=== PATIENT | female | born 1945 | race Caucasian/White ===

== ENCOUNTER → 2024-07-25 14:16 | Outpatient (CLI) | payer MEDICARE, OTHER, SELFPAY ==
--- NOTE | 2024-07-25 14:19 | DI.RAD.S_ITS ---
PROCEDURE: XR CHEST 2V INDICATIONS: hypoxia TECHNIQUE: 2 views of the chest were acquired. COMPARISON: [facility], CT, CT ANGIO CHEST PE, 06/13/2024, 23:15. FINDINGS: Surgical changes and devices: Stimulator device is noted overlying the mid thoracic spine. Lungs and pleura: Lungs are clear. No pleural effusions or pneumothorax. Mediastinum: Mediastinal contours are normal. Heart size is mildly prominent. Bones and chest wall: No suspicious bony abnormalities. Soft tissues appear unremarkable. IMPRESSION: No acute pulmonary process. Dictated by: Jaki Guold M.D. on 07/26/2024 at 11:10 Approved by: Jaki Gould M.D. on 07/26/2024 at 11:11
[2024-07-25 16:07] LABS: Allen Test for ABG Passed? Positive; Base Excess ABG 5.3 mmol/L (-2-3); Blood Gas Collection Site Right Radial; HCO3 ABG 31 mmol/L (23-27); Oxygen Saturation ABG 90 % (95-100); PCO2 ABG 46.4 mmHg (35-45); PO2 ABG 59 mmHg (80-100); TCO2 ABG 31 mmol/L (23-27); pH ABG 7.43 (7.35-7.45)
== END ==
PROVIDERS: PCP Family Medicine; Referring Provider Internal Medicine Critical Care Medicine; Visit Provider Internal Medicine Critical Care Medicine
DX: J45.909 Unspecified asthma, uncomplicated (principal); G47.34 Idiopathic sleep related nonobstructive alveolar hypoventilation; Z96.82 Presence of neurostimulator; Z68.31 Body mass index [BMI] 31.0-31.9, adult
CPT/HCPCS: 36600; 71046; 82805; 99214

== ENCOUNTER → 2024-08-02 08:20 | Outpatient (CLI) | payer MEDICARE, OTHER, SELFPAY | PROVIDERS: PCP Family Medicine; Referring Provider Internal Medicine Critical Care Medicine; Visit Provider Internal Medicine Critical Care Medicine | DX: J45.909 Unspecified asthma, uncomplicated (principal); G47.34 Idiopathic sleep related nonobstructive alveolar hypoventilation; Z87.891 Personal history of nicotine dependence; R94.2 Abnormal results of pulmonary function studies | CPT/HCPCS: 94060; 94726; 94729 ==

== ENCOUNTER → 2024-08-02 10:03 | Outpatient (CLI) | payer MEDICARE, OTHER, SELFPAY ==
--- NOTE | 2024-08-02 10:04 | DI.RAD.S_ITS ---
PROCEDURE: FL FLUOROSCOPY >1HR COMPARISON: None. INDICATIONS: ASTHMA, SNIFF TEST FINDINGS: There is symmetric movement of the hemidiaphragms with forced inspiration and expiration. IMPRESSION: Negative sniff test. Dictated by: Jaquan Jensen M.D. on 08/05/2024 at 6:34 Approved by: Jaquan Jensen M.D. on 08/05/2024 at 6:34
== END ==
LOC: RAD 10:04
PROVIDERS: PCP Family Medicine; Referring Provider Internal Medicine Critical Care Medicine; Visit Provider Internal Medicine Critical Care Medicine
DX: J45.909 Unspecified asthma, uncomplicated (principal); G47.34 Idiopathic sleep related nonobstructive alveolar hypoventilation
CPT/HCPCS: 76000; 94060; 94726; 94729

== ENCOUNTER → 2024-09-19 06:59 | Outpatient (CLI) | payer MEDICARE, OTHER, SELFPAY ==
--- NOTE | 2024-09-19 07:00 | DI.ECHO.S_ITS ---
[facility] : : [id number] : : [place] : : [id number] : : Phone: [phone] Echocardiogram Report + + :Name: KAREY WASHBURN Study Date: 09/19/2024 Height: 66 in : :[facility] ReadingLocation: Weight: 200 lb : : Gender: Female BSA: 2.0 m2 : :: 1945 Age: 79 yrs BP: 114/68 mmHg: :Reason For Study: DYSPNEA AND LOW O2 STATS : :Ordering Physician: KASSIDY, : :KENDRICK Performed By: Jeniffer Hull : :Referring: KENDRICK YI : + + Interpretation Summary Sinus bradycardia. Normal LV size and wall thickness. Normal wall motion and LV systolic function. Ejection fraction is 60-65%. Stage I diastolic dysfunction. Mild mitral annular calcification. Mild aortic stenosis with peak velocity of 2 m/s and mean gradient of 10 mmHg. Normal chamber sizes. No PFO based on bubble study. Estimated PA systolic pressure is 32 mmHg assuming right atrial pressure of 3 mmHg. Compared to prior study May 11, 2023, aortic stenosis is newly described. Procedure: A two-dimensional transthoracic echocardiogram with color flow and Doppler was performed. The study quality was technically adequate. A saline contrast injection was performed to assess for cardiac shunting. Comparison is made with the echocardiogram of 05/11/2023. The patient was in sinus bradycardia with heart rates between 50-58 bpm during the exam. Left Ventricle: The left ventricle is normal in size and wall thickness. The ejection fraction is estimated to be 60-65%. Right Ventricle: The right ventricle is borderline dilated. The right ventricular systolic function is normal. Atria: The left atrial size is normal. Right atrial size is normal. Injection of contrast documented no interatrial shunt. There is no Doppler evidence for an interatrial shunt. Mitral Valve: There is mild mitral annular calcification. The mitral valve leaflets appear mildly thickened, but open well. There is mild mitral regurgitation. Aortic Valve: There is mild aortic valve sclerosis. The aortic valve is mildly calcified. The aortic valve is trileaflet. There is mild aortic stenosis. The peak aortic velocity is 2.1 m/sec. The aortic valve mean gradient is 10 mmHg. No aortic regurgitation is present. Tricuspid Valve: The tricuspid valve leaflets are thin and pliable. There is mild to moderate tricuspid regurgitation. Pulmonic Valve: The pulmonic valve leaflets are thin and pliable; valve motion is normal. There is mild pulmonic regurgitation. Great Vessels: The aortic root is normal size. The dimensions of the ascending aorta are normal. The IVC is dilated (diameter is greater than 2.1 cm) yet it collapses greater than 50% with a sniff. This suggests a right atrial pressure of 8 mm Hg. Pericardium/ Pleura There is no pericardial effusion. There is no pleural effusion. MMode/2D Measurements & Calculations LVIDd: 5.1 cm LVOT diam: 2.0 cm LVIDs: 3.4 cm Ao root diam: 3.3 cm FS: 32.2 % asc Aorta Diam: 3.2 cm EPSS: 0.66 cm Ao Arch Diam (Prox Trans): 3.2 cm IVSd: 0.74 cm LVPWd: 0.78 cm LV gross. diameter/BSA (cm/m^2): 2.5 LV sys. diameter/BSA (cm/m^2): 1.7 LA A2 area: 18.3 cm2 RA long axis: 4.9 cm LA A4 area: 21.7 cm2 RA area: 18.8 cm2 LA length (vol): 5.8 cm RA vol: 62.0 ml LA vol: 57.6 ml RA : 31.0 ml/m2 LA vol index: 28.8 ml/m2 IVC diam: 2.3 cm RVD1 (basal): 4.0 cm RVD2 (mid): 3.5 cm TAPSE: 2.2 cm Doppler Measurements & Calculations Ao V2 max: 215.7 cm/sec LVOT Max Tremaine: 81.2 cm/sec Ao V2 mean: 148.3 cm/sec LV V1 max P.6 mmHg Ao max P.7 mmHg LV V1 VTI: 21.8 cm Ao mean P.4 mmHg JHONNY(I,D): 1.4 cm2 Ao V2 VTI: 49.3 cm JHONNY(V,D): 1.2 cm2 sev ratio: 0.44 JHONNY indexed to BSA (cm^2/m^2): 0.70 MV E max tremaine: 97.6 cm/sec TR max tremaine: 255.0 cm/sec MV A max tremaine: 102.9 cm/sec TR max P.1 mmHg MV E/A: 0.95 PA V2 max: 105.4 cm/sec Med Peak E' Tremaine: 6.7 cm/sec PA V2 mean: 67.3 cm/sec E/E' med: 14.5 PA mean P.1 mmHg Lat Peak E' Tremaine: 9.5 cm/sec PA pr(Accel): 43.0 mmHg E/E' lat: 10.3 E/e' average: 12.4 MV dec time: 0.23 sec SV(LVOT): 69.2 ml Electronically signed by: Joyce Mcdermott M.D. on Reading Physician:09/20/2024 01:10 AM
== END ==
PROVIDERS: PCP Family Medicine; Referring Provider Internal Medicine Critical Care Medicine; Visit Provider Internal Medicine Critical Care Medicine
DX: G47.34 Idiopathic sleep related nonobstructive alveolar hypoventilation (principal); I08.3 Combined rheumatic disorders of mitral, aortic and tricuspid valves
CPT/HCPCS: 93306